=== PATIENT | female | born 1980 | race Two or more races ===

== ENCOUNTER 2025-08-09 07:45 | Day surgery (SDC) | payer MEDICAID ==
[2025-08-02 10:39] LABS: Urine Protein, UAD Negative (Negative)
[2025-08-02 10:48] LABS: INR 0.92 (0.9-1.15); Partial Thromboplastin Time 27.1 SEC (24.5-34.5); Prothrombin Time 9.8 sec (9.3-11.8)
[2025-08-02 10:53] LABS: Hematocrit 39.9 % (36.0-46.0); Hemoglobin 13.5 g/dL (12.2-16.2); Mean Corpuscular Hemoglobin 29.0 pg (28.0-32.0); Mean Corpuscular Volume 85.7 fL (80.0-100.0); Nucleated Red Blood Cells % 0.0 %
[2025-08-02 10:54] LABS: Alanine Aminotransferase 21 U/L (7-40); Alkaline Phosphatase 89 U/L (46-116); Anion Gap 7 (5-15); BUN/Creatinine Ratio 8.0 (10.0-20.0); Blood Urea Nitrogen 7 mg/dL (9-23); Calcium 9.3 mg/dL (8.7-10.4); Carbon Dioxide 29 mmol/L (20-31); Chloride 104 mmol/L (98-107); Glucose 226 mg/dL (74-106); Potassium 4.4 mmol/L (3.5-5.1); Sodium 140 mmol/L (136-145); Total Protein 6.5 g/dL (5.7-8.2)
[2025-08-02 10:55] LABS: Albumin 3.9 g/dL (3.2-4.8)
[2025-08-02 10:56] LABS: Bilirubin, Total 0.4 mg/dL (0.2-1.0)
[~2025-08-09] VITALS: Ht 160 cm; Wt 104.8 kg
[~2025-08-09 07:45] MED LIST: CYCL-837 PO; DICL1GEL73 TD; DULA1INJ SC; IBUP-1456 PO; INSLANTI SC; LIDO5DIS21 TOP; METF-372 PO; OMEP-448 PO; TRAM50TA2 PO
[2025-08-09] MEDS ORDERED: ONDANSETRON HCL 4 MG/2 ML VIAL ONE (08:02)
[2025-08-09] MEDS ORDERED: METOCLOPRAMIDE HCL 5MG/ml INJ 2ml VIAL ONE (08:02)
[2025-08-09] MEDS ORDERED: LIDOCAINE 1% INJ PF 5ML AMP ONE ×3 (08:02→08:04)
[2025-08-09] MEDS ORDERED: PROPOFOL 10 MG/ML 20 ML IV ONE (08:02)
[2025-08-09 08:41] VITALS: TEMP 98.1; O2SAT 98
--- NOTE | 2025-08-09 08:42 | DVHHP2 ---
GI H&P Pre-Op Assessment Date: 08/09/25 Chief complaint: Epigastric pain, positive fit test HPI: per clinic note Past medical history: per clinic note Past surgical history: per clinic note Family history: per clinic note Physical exam: General: NAD, AAOX3 HEENT: PERRL, no scleral icterus, normal hearing, gums without lesions or bleeding, oropharynx clear without erythema or exudate. Neck: Supple without enlargement of the thyroid, or lymphadenopathy. Chest: Normal size and shape, no tenderness, lung carbone clear to auscultation and percussion, nonlabored breathing. Heart: RRR, no murmur Abdomen: non-distended, no tenderness to palpation, +BS, no hepatosplenomegaly Extremities: no edema Neurological: CN II-XII intact, sensation intact in all extremities, 5+ strength in all extremities Skin: No rashes, No jaundice Assessment: - Epigastric pain, positive fit test Plan: - EGD - Colonoscopy - Risks (bleeding, infection, perforation, reaction to sedation medications and cardiopulmonary arrest) and benefit of the procedure were explained to patient. Patient agrees to undergo the procedure. ANICETO IVORY MD Aug 09, 2025 08:42
--- NOTE | 2025-08-09 08:44 | DVHOP2 ---
Operative Report DATE OF OPERATION: 08/09/25 PROCEDURE: Upper Endoscopy. PREOPERATIVE INDICATION: The patient is a 45 -year-old female undergoing endoscopy for epigastric pain. POSTOPERATIVE DIAGNOSES: 1. Normal EGD PROCEDURE PERFORMED BY: Vidal Ross SCOPE: Olympus videoendoscope. ASA CLASS: 3 PREOPERATIVE MEDICATIONS: MAC with Vaughan NIMCO PROCEDURE IN DETAIL: After obtaining an informed consent, the patient was placed on left lateral decubitus position. The patient was then sedated with the above medications. A bite block was placed between her teeth. The endoscope was then passed through the oropharynx, into the esophagus, and through the stomach and pylorus up to the second and third part of the duodenum. The duodenum was normal in appearance. The stomach was normal in appearance. Gastric biopsies were obtained using cold forceps. The GE junction was normal in appearance at 33 cm. The esophagus was normal in appearance. The endoscope was then withdrawn. The patient tolerated the procedure well without difficulty. COMPLICATIONS : None SPECIMENS: Gastric biopsies DISPOSITION: D/C to home PLAN: 1. Await for biopsy result VIDAL ROSS MD Aug 09, 2025 08:44
--- NOTE | 2025-08-09 08:46 | DVHOP2 ---
Operative Report DATE OF OPERATION: 08/09/25 PROCEDURE: Colonoscopy. PREOPERATIVE INDICATION: The patient is a 45 -year-old female undergoing colonoscopy for positive fit test and constipation. POSTOPERATIVE DIAGNOSES: 1. No large polyp was observed. Small polyp might have been missed due to poor prep. PROCEDURE PERFORMED BY: Vidal Ross M.D. SCOPE: Olympus videocolonoscope. ASA CLASS: 3 PREOPERATIVE MEDICATIONS: MAC with Vaughan BUTCHER APPRENTICE PROCEDURE IN DETAIL: After obtaining an informed consent, the patient was placed on left lateral decubitus position. She was then sedated with the above medications. A rectal examination was performed that was normal. The colonoscope was then passed through the anus into the rectosigmoid and through the descending, transverse, and ascending colon up to the cecum with vi sualization of the appendiceal orifice, base of the cecum and the ileocecal valve. No large mass or polyp was observed. The prep was poor. The colonoscope was then withdrawn. The patient tolerated the procedure well without difficulty. WITHDRAWAL TIME: 7 minutes QUALITY OF THE PREP: Butler Bowel Prep score: 3 COMPLICATIONS : None SPECIMENS: None DISPOSITION: D/C to home PLAN: 1. Repeat colonoscopy with two day prep. VIDAL ROSS MD Aug 09, 2025 08:46
--- NOTE | 2025-08-09 08:47 | DVHDS2 ---
Physician Discharge Progress N Final Diagnosis: Normal EGD Normal colonoscopy Operations or Procedures: Operations or Procedures EGD with cold biopsy Colonoscopy Condition on Discharge: Good Disposition: Home Discharge Instructions: Diet: Regular Activity: No Restrictions, As Tolerated Medications: resume previous home medications Follow Up Care: Discharge Statement: "Patient was advised to return to the ER or call 911 if any headaches, dizziness, shortness of breath, chest pain, abdominal pain, bleeding, fevers, or worsening of medical condition. Patient was counseled about treatment plan, medications, possible side effects, patientverbalized understanding. All questions were answered to the best of my ability. This discharge took greater then 30 minutes in planning, reviewing documentation, counseling the patient, and discussing with other team members." ANICETO IVORY MD Aug 09, 2025 08:47
[2025-08-09 09:26] VITALS: BP 115/66; PULSE 76; RESP 22; O2SAT 100
== END 2025-08-09 09:50 | disposition home or self-care (01) ==
LOC: GI 07:45
PROVIDERS: ATTEND Internal Medicine Gastroenterology
DX: R19.5 Other fecal abnormalities (principal); K59.00 Constipation, unspecified; R10.13 Epigastric pain; K29.50 Unspecified chronic gastritis without bleeding; B96.81 Helicobacter pylori [H. pylori] as the cause of diseases classified elsewhere; E11.9 Type 2 diabetes mellitus without complications; Z98.890 Other specified postprocedural states
CPT/HCPCS: 36415; 43239; 45378; 80053; 81001; 81025; 82962; 85025; 85610; 85730; 88305; 88342; J2405; J2704; J2765; J7030